=== PATIENT | female | born 1935 | race Caucasian/White ===

== ENCOUNTER → 2019-01-25 | Outpatient (CLI) | payer MEDICARE ==
--- NOTE | 2019-01-25 10:31 | PCVCIMAG ---
APPROVED REPORT Study performed: 01/25/2019 09:31:44 EXAM: Comprehensive 2D, Doppler, and color-flow Echocardiogram Patient Location: Echo lab Status: routine BSA: 1.68 HR: 66 bpmBP: 124/80 mmHg Rhythm: NSR Other Information Study Quality: Adequate Risk Factors: Cardiac Risk Factors: HTN Indications Amaurosis fugax 2D Dimensions IVSd: 13.11 (7-11mm) LVDd: 34.59 mm PWd: 12.71 (7-11mm)Ascending Ao: 36.37 (22-36mm) LVDs: 24.65 (25-40mm) Left Atrium: 29.01 (27-40mm) Aortic Root: 32.92 mm LV Single Plane 4CH: 55.45 % LV Single Plane 2CH: 61.13 % Biplane EF: 58.8 % Volumes Left Atrial Volume (Systole) Single Plane 4CH: 38.45 mLSingle Plane 2CH: 41.20 mL LA ESV Index: 27.00 mL/m2 Aortic Valve AoV Peak Tristin.: 1.00 m/s AO Peak Gr.: 3.99 mmHgLVOT Max P.27 mmHg LVOT Max V: 0.75 m/s Mitral Valve E/A Ratio: 0.8 MV Decel. Time: 231.19 ms MV E Max Tristin.: 0.60 m/s MV A Tristin.: 0.77 m/s IVRT: 128.03 ms Pulmonary Valve PV Peak Tristin.: 0.89 m/sPV Peak Gr.: 3.14 mmHg Pulmonary Vein P Vein S: 0.37 m/sP Vein A: 0.50 m/s P Vein D: 0.57 m/sP Vein A Dur.: 162.6 msec P Vein S/D Ratio: 0.65 Tricuspid Valve TR Peak Tristin.: 2.41 m/s TR Peak Gr.: 23.25 mmHg Left Ventricle The left ventricle is normal size. There is normal LV segmental wall motion. Mild concentric left ventricular hypertrophy. Left ventricular systolic function is normal. The left ventricular ejection fraction is within the normal range. LVEF is 55-60%. Grade I - abnormal relaxation pattern. Right Ventricle The right ventricle is normal size. The right ventricular systolic function is normal. Atria The left atrium size is normal. The interatrial septum is intact with no evidence for an atrial septal defect. The right atrium size is normal. Aortic Valve The aortic valve is normal in structure. No aortic regurgitation is present. There is no aortic valvular stenosis. Mitral Valve The mitral valve is normal in structure. Mild mitral regurgitation. No evidence of mitral valve stenosis. Tricuspid Valve The tricuspid valve is normal in structure. Trace tricuspid regurgitation with PAP of 30 mmHg. Pulmonic Valve The pulmonary valve is normal in structure. There is no pulmonic valvular regurgitation. Great Vessels The aortic root is normal in size. IVC is normal in size and collapses >50% with inspiration. Pericardium There is no pericardial effusion. There is no pleural effusion. <Conclusion> The left ventricle is normal size. Mild concentric left ventricular hypertrophy. Left ventricular systolic function is normal. Grade I - abnormal relaxation pattern. The right ventricle is normal size. The left atrium size is normal. The right atrium size is normal. The aortic valve is normal in structure. Mild mitral regurgitation. Trace tricuspid regurgitation with PAP of 30 mmHg.
--- NOTE | 2019-01-25 12:21 | PCVCIMAG ---
APPROVED REPORT Indications Amaurosis Fugax Doppler Spectral Velocity Analysis PSV / EDVPSV / EDV ECA (R) 74 / 8 cm/sECA (L) 69 / 10 cm/s dICA (R) 56 / 19 cm/sdICA (L) 41 / 15 cm/s Patsy (R) 58 / 17 cm/smICA (L) 43 / 14 cm/s pICA (R) 35 / 10 cm/spICA (L) 43 / 10 cm/s Bulb (R) 47 / 10 cm/sBulb (L) 55 / 14 cm/s dCCA (R) 74 / 17 cm/sdCCA (L) 67 / 15 cm/s mCCA (R) 82 / 19 cm/smCCA (L) 82 / 20 cm/s Vert (R) 71 / 19 cm/sVert (L) 20 / 8 cm/s ICA/CCA 0.64 ICA/CCA 0.71 Basic Measurements Blood Pressure: Pulses: Right Left RightLeft Brachial(Sitting) 126/35rwLj052/80mmHgTemporal Real Time B-Mode Imaging Vert. (R)AntegradeVert. (L)Antegrade Findings The right carotid bulb has mild heterogeneous plaque. The right proximal internal carotid artery shows <40% stenosis. The right common carotid artery shows no significant stenosis. The right external carotid artery shows no significant stenosis. The left carotid bulb has moderate calcified plaque. The left proximal internal carotid artery shows <40% stenosis. The left common carotid artery shows no significant stenosis. The left external carotid artery shows no significant stenosis. Conclusion 1. Right internal carotid artery stenosis (<40%). 2. Left internal carotid artery stenosis (<40%). 3. Antegrade vertebral flow.
== END | disposition home or self-care (01) ==
LOC: PCVCIMAG 10:01
PROVIDERS: ATTEND Ophthalmology
DX: I11.9 Hypertensive heart disease without heart failure (principal); I34.0 Nonrheumatic mitral (valve) insufficiency; I65.23 Occlusion and stenosis of bilateral carotid arteries
CPT/HCPCS: 93306; 93880